=== PATIENT | male | born 2005 | race Caucasian/White ===

== ENCOUNTER 2024-03-08 12:46 | Emergency (ER) | payer OTHER, SELFPAY ==
[2024-03-08 12:51] VITALS: BP 150/100; PULSE 109; RESP 20; TEMP 36.6; O2SAT 97
[2024-03-08 13:58] LABS: Basophils Absolute Auto 0.1 K/mm3 (0.0-0.1); Basophils Percent Auto 0.5 % (0.2-1.2); Eosinophils Percent Auto 0.1 % (0-4.4); Hematocrit 53.7 % (42.0-52.0); Hemoglobin 18.1 g/dL (14.0-18.0); Immature Granulocyte Absolute 0.12 K/mm3 (0.00-0.031); Immature Granulocyte Percent A 0.6 % (0-0.5); Lymphocytes Absolute Auto 1.11 K/mm3 (0.9-3.2); Lymphocytes Percent Auto 5.6 % (18.3-44.2); Mean Corpuscular HGB Conc 33.7 g/dl (32-36); Mean Corpuscular Hemoglobin 29.7 pg (26-34); Mean Corpuscular Volume 88.2 fl (80-100); Mean Platelet Volume 12.6 fl (7.4-10.4); Monocytes Absolute Auto 0.7 K/mm3 (0.1-0.6); Monocytes Percent Auto 3.7 % (2.6-8.5); Neutrophils Absolute Auto 17.7 K/mm3 (1.3-6.7); Neutrophils Percent Auto 89.5 % (45.5-73.1); Platelet Count Result 216 k/mm3 (150-375); Red Blood Count 6.09 M/mm3 (4.6-6.20); Red Cell Distribution Width 12.4 % (11.5-14.5); White Blood Count 19.8 K/mm3 (4.5-10.0)
[2024-03-08] MEDS: SODIUM CHLORIDE 0.9% IV 1,000 ML 999 ML IV CONT (13:59)
[2024-03-08] MEDS: ONDANSETRON INJ 4 MG/2 ML VIAL IV PUSH (14:00)
[2024-03-08 14:03] VITALS: BP 115/65; PULSE 82; RESP 14; TEMP 36.5; O2SAT 100
[2024-03-08 14:07] LABS: Alanine Aminotransferase 118 U/L (6-50); Albumin Level 5.1 g/dL (3.5-5.1); Alkaline Phosphatase 80 U/L (38-126); Anion Gap 14 mmol/L (4-12); Aspartate Amino Transferase 42 U/L (17-59); Bilirubin,Total 0.9 mg/dL (0.2-1.3); Blood Urea Nitrogen 21 mg/dL (9-20); Calcium 9.7 mg/dL (8.4-10.2); Carbon Dioxide 25 mmol/L (22-30); Chloride 101 mmol/L (98-107); Estimated CRCL calculation 194 ml/min; Estimated Glomerular Filt Rate > 60; Glucose 114 mg/dL (65-110); Lipase 49 U/L (23-300); Potassium 4.2 mmol/L (3.4-5.0); Sodium 140 mmol/L (137-145)
--- NOTE | 2024-03-08 14:46 | ED.GENADULT ---
HPI - General Adult General Chief complaint: Nausea/Vomiting/Diarrhea Stated complaint: nausea,vomiting,diarrhea Time Seen by Provider: 03/08/24 13:30 History of Present Illness HPI narrative: Patient is a 19-year-old male who presents ER with nausea vomiting diarrhea. Began early this morning. He has had watery stools and forceful vomiting where his ruptured blood vessels in his face. He ate [employer] approximately 6 hours prior to diarrhea starting. No foreign travel. No recent antibiotic use. No known sick contacts. Denies any medical issues. Family history of low platelets. Related Data Allergies Allergy/AdvReac Type Severity Reaction Status Date / Time No Known Allergies Allergy Verified 03/08/24 12:47 Review of Systems Review of Systems: All systems reviewed & are unremarkable except as noted in HPI and below Constitutional: Constitutional: Reports no additional constitutional complaints ENT: Reports system reviewed and no additional complaints, except as documented Cardiovascular: Cardiovascular: Reports no additional cardiovascular complaints Gastrointestinal: Gastrointestinal: Denies abdominal pain, Reports diarrhea, Reports nausea and Reports vomiting PMFSH Past Medical History Medical History (Updated 03/08/24 @ 14:51 by Mick Slaughter MD) Healthy adult male Surgical History Surgical History (Updated 03/08/24 @ 14:47 by Mick Slaughter MD) No history of previous surgery Exam Narrative: GENERAL: Well-appearing, well-nourished, and in no acute distress. HEAD: Normocephalic, petechia a across the forehead in follows is there lying down towards the ears bilaterally. ENT: Mucous membranes moist. NECK: Supple. CHEST: Clear to auscultation. No respiratory distress. HEART: Regular rate and rhythm. Normal peripheral pulses. ABDOMEN: Soft, nontender, nondistended EXTREMITIES: Normal range of motion. No edema. SKIN: Warm, dry, no rash. NEURO: Alert and oriented x3. PSYCH: Normal mood and affect. Course Course Emergency Course: Patient resting comfortably. Informed of results. Hydrated and given antiemetics. White count felt to be reactive due to forceful retching. Abdomen soft and nontender. Hemoglobin elevated from dehydration. Discussed return precautions. Needs to establish care with PCP. Vital Signs Vital signs: Vital Signs Temperature 97.9 F 03/08/24 12:51 Pulse Rate 109 H 03/08/24 12:51 Respiratory Rate 20 03/08/24 12:51 Blood Pressure 150/100 H 03/08/24 12:51 Pulse Oximetry 97 03/08/24 12:51 Oxygen Delivery Room Air 03/08/24 12:51 Temperature 97.7 F 03/08/24 14:03 Pulse Rate 82 03/08/24 14:03 Respiratory Rate 14 03/08/24 14:03 Blood Pressure 115/65 03/08/24 14:03 Pulse Oximetry 100 03/08/24 14:03 Oxygen Delivery Room Air 03/08/24 12:51 Medical Decision Making Vital Signs Vital Signs: Vital Signs Temperature 97.9 F 03/08/24 12:51 Pulse Rate 109 H 03/08/24 12:51 Respiratory Rate 20 03/08/24 12:51 Blood Pressure 150/100 H 03/08/24 12:51 Pulse Oximetry 97 03/08/24 12:51 Oxygen Delivery Room Air 03/08/24 12:51 Temperature 97.7 F 03/08/24 14:03 Pulse Rate 82 03/08/24 14:03 Respiratory Rate 14 03/08/24 14:03 Blood Pressure 115/65 03/08/24 14:03 Pulse Oximetry 100 03/08/24 14:03 Oxygen Delivery Room Air 03/08/24 12:51 Lab Data 03/08/24 13:51 03/08/24 13:51 Labs: Lab Results 03/08/24 Range/Units 13:51 WBC 19.8 H (4.5-10.0) K/mm3 RBC 6.09 (4.6-6.20) M/mm3 Hgb 18.1 H (14.0-18.0) g/dL Hct 53.7 H (42.0-52.0) % MCV 88.2 (80-100) fl MCH 29.7 (26-34) pg MCHC 33.7 (32-36) g/dl RDW 12.4 (11.5-14.5) % Plt Count 216 (150-375) k/mm3 MPV 12.6 H (7.4-10.4) fl Immature Gran % (Auto) 0.6 H (0-0.5) % Neut % (Auto) 89.5 H (45.5-73.1) % Lymph % (Auto) 5.6 L (18.3-44.2) % Graves % (Auto) 3.7 (2.6-8
== END 2024-03-08 15:05 | disposition home or self-care (01) ==
PROVIDERS: Emergency Provider Emergency Medicine
DX: K52.9 Noninfective gastroenteritis and colitis, unspecified (principal)
CPT/HCPCS: 36415; 80053; 83690; 85025; 96361; 96374; 99284; J2405; J7030